=== PATIENT | female | born 1985 | race Caucasian/White ===

== ENCOUNTER 2025-01-22 20:09 | Emergency (ER) | payer SELFPAY ==
[~2025-01-22] VITALS: Ht 157.5 cm; Wt 77.0 kg
[2025-01-22 20:15] VITALS: BP 126/81; PULSE 67; RESP 16; TEMP 36.8; O2SAT 98
== END 2025-01-22 21:14 | disposition left against medical advice (07) ==
LOC: ER 20:09
DX: R07.9 Chest pain, unspecified (principal); Z53.21 Procedure and treatment not carried out due to patient leaving prior to being seen by health care provider
CPT/HCPCS: 93005